=== PATIENT | male | born 1985 | race African-American/Black ===

== ENCOUNTER 2016-04-10 17:55 | Emergency (ER) | payer SELFPAY ==
[2016-04-10] MEDS ORDERED: KETOROLAC 30 MG/ML VIAL ONE (18:26)
[2016-04-10] MEDS ORDERED: DILAUDID 1 MG/ML AMP ONE (20:00)
[2016-04-10] MEDS ORDERED: SODIUM CHLORIDE 0.9% 100 ML IV ONE (20:00)
[2016-04-10] MEDS ORDERED: CEFTRIAXONE 1 GM VIAL ONE (20:00)
== END 2016-04-10 20:32 | disposition home or self-care (01) ==
LOC: ER 17:55
DX: N30.00 Acute cystitis without hematuria (principal)
CPT/HCPCS: 36415; 74176; 80053; 81001; 85025; 87088; 96365; 96375